=== PATIENT | female | born 1970 | race Caucasian/White ===

== ENCOUNTER 2018-09-26 09:16 | Day surgery (SDC) | payer BC ==
[2018-09-26] VITALS (14 sets, daily range): BP systolic 100–161; BP diastolic 62–90; PULSE 62–82; RESP 11–27; Ht 165.1 cm; Wt 82.3 kg
[~2018-09-26] VITALS: Ht 165.1 cm; Wt 82.3 kg
--- NOTE | 2018-09-26 10:20 | PREAC ---
Date/Time of Note Date/Time of Note DATE: 09/26/18 TIME: 10:18 Anesthesia Eval and Record Evaluation Time Pre-Procedure Interview DATE: 09/26/18 TIME: 10:18 Age 48 Sex female NPO: 8 hrs Preoperative diagnosis L groin tumor Planned procedure L groin tumor excisional biopsy Past Medical History Past Medical History: Includes GI: Obesity Surgery & Anesthesia Issues No known issue Meds Anticoagulation: No Beta Fatou within 24 hr: No Reason Beta Fatou not given: Pt. not on B-Fatou No Active Prescriptions or Reported Meds Current Medications Sodium Chloride 1,000 ml @ 75 mls/hr [id number] IV Last administered on 09/26/18at 10:16; Admin Dose 75 MLS/HR; Start 09/26/18 at 13:00; Stop 09/27/18 at 02:19 Cefazolin Sodium/ Dextrose 50 ml @ 100 mls/hr PRE-OP ONCE IVPB ; Start 09/26/18 at 13:00; Stop 09/26/18 at 13:29 Meds reviewed: Yes Allergies Coded Allergies: No Known Allergies (Verified Allergy, Unknown, 09/26/18) Allergies Reviewed: Yes Labs/Studies Labs Reviewed: Reviewed by anesthesiologist Result Diagram: 09/26/18 0843 09/26/18 0843 Laboratory Tests 09/26/18 08:43 test: Negative Studies: ECG (nsr, nml), CXR (cxr done in preop) Pre-procedure Exam Last vitals Vital Signs Date Temp Pulse Resp B/P (MAP) Pulse Ox O2 O2 Flow FiO2 Time Delivery Rate 09/26/18 98.4 62 16 161/82 99 Room Air 10:00 (108) Airway: Adequate mouth opening, Adequate thyromental dist Mallampati: Mallampati II Teeth: Normal Lung: Normal Heart: Normal ASA Physical Status ASA physical status: 2 Emergency: None Planned Anesthetic General/MAC: ETT Pre-operative Attestations Prior to commencing anesthesia and surgery, the patient was re-evaluated, there was verification of: *The patient's identity *The results of appropriate recent lab work and preoperative vital signs *The above evaluation not changing prior to induction *Anesthetic plan, risk benefits, alternative and complications discussed with patient/family; questions answered; patient/family understands, accepts and wishes to proceed. Product Development Specialist used TATUM MILLER Sep 26, 2018 10:20
[2018-09-26] MEDS ORDERED: BUPIVACAINE 0.25% (MPF) 30 ML INJ ONE (11:45)
[2018-09-26] MEDS ORDERED: DESFLURANE 15 MIN ONE (11:50)
[2018-09-26] MEDS ORDERED: ONDANSETRON 4 MG INJ ONE (11:54)
[2018-09-26] MEDS ORDERED: ROCURONIUM 50 MG INJ ONE (11:54)
[2018-09-26] MEDS ORDERED: PROPOFOL 20 ML ONE (11:54)
[2018-09-26] MEDS ORDERED: NEOSTIGMINE 3 MG/3 ML SYRINGE ONE (11:54)
[2018-09-26] MEDS ORDERED: FENTAnyl 50 MCG/ML VIAL ONE (11:54)
[2018-09-26] MEDS ORDERED: MIDAZOLAM 1 MG/ML 2 ML INJ ONE (11:54)
[2018-09-26] MEDS ORDERED: GLYCOPYRROLATE 0.4 MG INJ ONE (11:54)
[2018-09-26] MEDS ORDERED: CEFAZOLIN 1 GM INJ ONE (11:54)
[2018-09-26] MEDS ORDERED: DEXAMETHASONE 4 MG/ML 5 ML INJ ONE (11:54)
[2018-09-26] MEDS ORDERED: ALBUTEROL 0.083% (NEB) 2.5 MG/3 ML AMP HHN PRN (12:00)
[2018-09-26] MEDS ORDERED: EPHEDrine 25 MG/5 ML SYG IV PRN (12:00)
[2018-09-26] MEDS ORDERED: TRIMETHOBENZAMIDE 100 MG/ML VIAL IM PRN (12:00)
[2018-09-26] MEDS ORDERED: hydrALAzine 20 MG INJ IV PRN (12:00)
[2018-09-26] MEDS ORDERED: DIPHENHYDRAMINE 50 MG INJ IV PRN (12:00)
[2018-09-26] MEDS ORDERED: LABETALOL HCL 20MG INJ IV PRN (12:00)
[2018-09-26] MEDS ORDERED: MEPERIDINE 25 MG INJ IV PRN (12:00)
[2018-09-26] MEDS ORDERED: IPRATROPIUM (NEB) 0.5 MG/2.5 ML AMP HHN PRN (12:00)
[2018-09-26] MEDS ORDERED: HYDROmorphONE 1 MG/5 ML IV SYRINGE IV PRN ×3 (12:00)
[2018-09-26] MEDS ORDERED: FENTAnyl 50 MCG/ML VIAL IV PRN ×3 (12:00)
[2018-09-26] MEDS ORDERED: MIDAZOLAM 1 MG/ML 2 ML INJ IV PRN (12:00)
[2018-09-26] MEDS ORDERED: OXYCODONE/ACETAMINOPHEN (5/325) TAB PO PRN ×2 (12:00)
[2018-09-26] MEDS ORDERED: ONDANSETRON 4 MG INJ IV PRN (12:00)
[2018-09-26] MEDS ORDERED: SUGAMMADEX SODIUM 200 MG/2 ML VIAL IV ONE (12:51)
[2018-09-26] MEDS ORDERED: SOD CHLORIDE 0.9% 1,000 ML IV SCH (13:00)
[2018-09-26] MEDS ORDERED: CEFAZOLIN 2 GM/50 ML (PMX) 50 ML IVPB ONE (13:00)
[2018-09-26] MEDS ORDERED: HYDROCODONE/APAP (5/325) TAB PO ONE (13:00)
--- NOTE | 2018-09-26 13:00 | OPR ---
Date/Time of Note Date/Time of Note DATE: 09/26/18 TIME: 12:58 Operative Report Procedure Date: Sep 26, 2018 Preoperative Diagnosis left groin tumor Postoperative Diagnosis same Operation/Procedure Performed 1. wide local excision of left groin tumor 10 cm tumor 10 cm incision 2. localized adjacent tissue transfer with the use of skin flaps 20 sq cm defect of left groin 3. therapeutic injection of subcutaneous local anesthesia Surgeon see signature line Cupola Repairer none Anesthesia Type: general Estimated Blood Loss: 10 - 50 ml's Transfusion none Specimen left groin tumor Grafts/Implants none Complications none Pt Condition Post Procedure: stable Indications This is a 48-year-old female with a left groin tumor that is growing and is concerning for lymphoma. She is here for an excisional biopsy. Risks alternatives benefits and percent were discussed the patient. Potential complications including but not limited to bleeding infection nerve injury pain recurrence of tumor wound dehiscence were discussed the patient. Patient expressed understanding consents to the operation. Procedure Description Patient is taken to the OR and prepped and draped in usual sterile fashion. Surgical time was performed. IV antibiotics given. Left inguinal oblique incision made at the 10 blade. Dissection with cautery skin onto the area of the tumor. The tumor is excised. The tumor was very friable and the raw marco face was very friable. Cautery was used to establish hemostasis. Surgicel snow was also placed into the wound to augment hemostasis. Good hemostasis established. Due to large tissue defect localized adjacent to his transfer with use of skin flaps was performed. Multilayer closed with interrupted 3-0 Vicryl and skin mahesh. Therapeutic subcutaneous local anesthesia was injected at the incision site. Dry dressings were applied. Raymundo WHITMAN Sep 26, 2018 13:00
--- NOTE | 2018-09-26 13:05 | PAC ---
Date/Time of Note Date/Time of Note DATE: 09/26/18 TIME: 13:05 Post-Anesthesia Notes Post-Anesthesia Note Last documented vital signs Vital Signs Date Temp Pulse Resp B/P (MAP) Pulse Ox O2 O2 Flow FiO2 Time Delivery Rate 09/26/18 98.4 62 16 161/82 99 Room Air 10:00 (108) Activity: WNL Respiratory function: WNL Cardiovascular function: WNL Mental status: Baseline Pain reasonably controlled: Yes Hydration appropriate: Yes Nausea/Vomiting absent: Yes Mason Solano M.D. Sep 26, 2018 13:05
--- NOTE | 2018-09-26 14:24 | RADRPT ---
Vent Rate: 64 bpm RR Interval: 940 msec UT Interval: 179 msec QRS Duration: 82 msec QT Interval: 418 msec QTC Interval: 431 msec P-R-T [place]: 53 - 63 - 56 degrees Sinus rhythm...normal P axis, V-rate 50- 99 Electronically Signed By: Stephen Robertson
== END 2018-09-26 15:07 | disposition home or self-care (01) ==
LOC: SDS 09:16
PROVIDERS: ATTEND Surgery
DX: C82.35 Follicular lymphoma grade IIIa, lymph nodes of inguinal region and lower limb (principal)
CPT/HCPCS: 14001; 71045; 80053; 84703; 85025; 85610; 85730; 88307; 88313; 93005; J0690; J1100; J1170; J2250; J2405; J3010; Z7512; Z7610; J2710

== ENCOUNTER 2018-11-15 12:23 | Day surgery (SDC) | payer BC ==
[2018-11-14 18:08] VITALS: BMI 29.7
[~2018-11-15] VITALS: Ht 160 cm; Wt 83.0 kg
[2018-11-15 13:05] VITALS: BP 142/74; PULSE 64; RESP 16; Ht 160 cm; Wt 83.0 kg
[2018-11-15] MEDS ORDERED: MIDAZOLAM 1 MG/ML 2 ML INJ ONE (14:37)
[2018-11-15] MEDS ORDERED: FENTAnyl 50 MCG/ML VIAL ONE (14:37)
[2018-11-15] MEDS ORDERED: LIDOCAINE 1%/EPI (1:100,000) (MDV) 20 ML ONE ×2 (14:38→14:42)
[2018-11-15] MEDS ORDERED: HEPARIN 1000 UNITS/ML 10 ML INJ ONE (14:41)
[2018-11-15] MEDS ORDERED: CEFAZOLIN 1 GM/50 ML (PMX) 50 ML IVPB ONE (14:41)
[2018-11-15] MEDS ORDERED: SOD CHLORIDE 0.9% 500 ML ONE (14:54)
[2018-11-15] MEDS ORDERED: CEFAZOLIN 1 GM/50 ML (PMX) 50 ML IVPB SCH (15:00)
[2018-11-15] MEDS ORDERED: POLYMYXIN/BACITRACIN 1L IRRIG IRR SCH (15:00)
[2018-11-15 16:05] VITALS: BP 122/65; PULSE 79; RESP 16
--- NOTE | 2018-11-15 16:14 | HPN ---
Date/Time of Note Date/Time of Note DATE: 11/15/18 TIME: 16:14 Interval H&P Admission Note Pt. seen H&P reviewed: No system changes KRISTOFER MICHAEL MD Nov 15, 2018 16:14
[2018-11-15] MEDS ORDERED: traMADol 50 MG TAB ONE (17:09)
[2018-11-15] MEDS ORDERED: traMADol 50 MG TAB PO ONE (17:30)
--- NOTE | 2018-11-16 10:24 | RADRPT ---
PROCEDURE: FLUOROSCOPIC AND ULTRASONOGRAPHIC-GUIDED PLACEMENT OF RIGHT CHEST PORT. CLINICAL INDICATION: Venous access for chemotherapy. TECHNIQUE: Informed consent was obtained. The procedure, risks, benefits, complications and alternatives were e xplained to the patient. Risks including bleeding, infection, and pneumothorax were explained. The p atient understood and was willing to proceed. A procedural pause was performed. The patient's name, d ate of , and procedure to be performed were verified. The central line was inserted with all el ements of maximal sterile barrier technique. All of the following were used: head covering, facial ma sk, sterile gown, sterile gloves, a large sterile sheet, hand hygiene, and 2% chlorhexidine for cuta neous antisepsis. The right neck and anterior/superior chest wall were prepped and draped in usual sterile fashion. Limited sonography of the right neck was then performed. Noted is a patent right internal jugular vei n. Following the local injection of 1% lidocaine, the right internal jugular vein was punctured under so nographic guidance with a 20-gauge needle through which a 0.018 inch floppy tip guidewire was advance d into the superior vena cava, then the right atrium with fluoroscopic guidance. The tract was dila avinash to 5 [place] and the wire was then replaced with a 0.035 in guidewire. A site just inferior to the clavicle in the superior anterior right chest wall was localized. One per cent lidocaine was used as local anesthesia. A transverse 2.5 cm incision was made utilizing a 15 savage de scalpel. Utilizing blunt dissection a subcutaneous pocket was created inferior to the incision. Th e cavity was flushed with approximately 40 cc of PB antibiotic solution. The catheter was tunneled underneath the skin from the newly created pocket to the puncture site in t he neck. The central line catheter was pulled through the tract. Serial dilatation was then performed and a 7 [place] peel away sheath was introduced. The catheter was then advanced through the peel-away sheath until the tip was positioned in the right atrium. The peel-away sheath was removed. The toña ter was flushed, clamped, and cut to the appropriate length. The 6.6 [place] catheter was then connected to the [employer] power port. The port was then placed into the pocket. Prior to closing the instrument and sponge count was verified and was correct. The s ubcutaneous tissue was closed with 3-0 Vicryl interrupted suture. The skin at the site of the pocket and in the neck was closed with 4-0 Vicryl suture in a running subcuticular technique. The port was f lushed with 1500 units of heparin in 1.5 cc utilizing a Mos[place] needle. The needle was removed. A dress ing was applied. Specimens: None. Blood loss: 5 ml. Complications: None. Outside Operator: None Anesthesia: Local and moderate sedation. Graft/Implant: Right chest port. COMPARISON: None. FINDINGS: Ultrasound images were recorded and stored in the patient's medical record. Final radiographic images demonstrate the tip of the catheter in the upper right atrium. A total of 1.8 minutes of fluoroscopy time was used. 1 images of the chest were obtained with the image intensi fier. The ultrasound images demonstrate the needle entering the internal jugular vein. IMPRESSION: 1. Successful ultrasonographic and fluoroscopic guided placement of right chest power port. RPTAT: QQ Physician Koby Date Time Electronically viewed and signed by Physician Koby on 11/16/2018 10:24 RD/
== END 2018-11-15 17:45 | disposition home or self-care (01) ==
LOC: SDS 12:23
PROVIDERS: ATTEND Internal Medicine Hematology & Oncology
DX: C82.30 Follicular lymphoma grade IIIa, unspecified site (principal)
CPT/HCPCS: 36561; C1788; J0690; J1644; J2250; J3010; J7040; Z7610

== ENCOUNTER 2018-12-14 11:17 | Emergency (ER) | payer BC ==
[~2018-12-14] VITALS: Ht 162.6 cm; Wt 84.2 kg
[2018-12-14 11:31] VITALS: Ht 162.6 cm; Wt 84.2 kg
[2018-12-14 13:06] VITALS: BP 125/67; PULSE 75; RESP 20
== END 2018-12-14 13:06 | disposition home or self-care (01) ==
LOC: FTE 11:17
DX: Z45.2 Encounter for adjustment and management of vascular access device (principal); C56.9 Malignant neoplasm of unspecified ovary
CPT/HCPCS: 71046

== ENCOUNTER 2018-12-29 09:07 | Day surgery (SDC) | payer BC ==
[~2018-12-29] VITALS: Ht 163.8 cm; Wt 85.4 kg
[2018-12-29] VITALS (9 sets, daily range): BP systolic 111–150; BP diastolic 67–85; PULSE 66–78; RESP 14–20; Ht 163.8 cm; Wt 85.4 kg
[2018-12-29] MEDS ORDERED: SOD CHLORIDE 0.9% 1,000 ML IV SCH (09:59)
[2018-12-29] MEDS ORDERED: POLYMYXIN/BACITRACIN 1L IRRIG IRR ONE (11:00)
[2018-12-29] MEDS ORDERED: CEFAZOLIN 1 GM/50 ML (PMX) 50 ML IVPB ONE ×2 (11:00→11:27)
[2018-12-29] MEDS ORDERED: LIDOCAINE 1%/EPI 30 ML INJ ONE (11:02)
[2018-12-29] MEDS ORDERED: FENTAnyl 50 MCG/ML VIAL ONE (11:26)
[2018-12-29] MEDS ORDERED: MIDAZOLAM 1 MG/ML 2 ML INJ ONE (11:27)
[2018-12-29] MEDS ORDERED: LIDOCAINE 1%/EPI 30 ML INJ INJ ONE (11:30)
[2018-12-29] MEDS ORDERED: HEPARIN 1000 UNITS/ML 10 ML INJ ONE (11:39)
== END 2018-12-29 14:13 | disposition home or self-care (01) ==
LOC: SDS 09:07
PROVIDERS: ATTEND Internal Medicine Hematology & Oncology
DX: C82.35 Follicular lymphoma grade IIIa, lymph nodes of inguinal region and lower limb (principal)
CPT/HCPCS: 36561; 80053; 85025; 85610; 85730; 87070; J0690; J1644; J2250; J3010; Z7610